=== PATIENT | female | born 1935 | race Caucasian/White ===

== ENCOUNTER 2018-11-15 20:25 | Emergency (ER) | payer OTHER, BC ==
[~2018-11-15] VITALS: Ht 165.1 cm; Wt 59.5 kg
[2018-11-15 20:32] VITALS: Ht 165.1 cm; Wt 59.5 kg
[2018-11-15 21:19] LABS: BASOPHIL % 0.5 % (0-2); PLATELET COUNT 241 x10^3mcL (130-400); RED CELL DISTRIBUTION WIDTH 15.1 % (11.5-14.5)
[2018-11-15 21:24] LABS: CALCIUM 8.9 mg/dL (8.5-10.1); CARBON DIOXIDE 29.7 mmol/L (21-32); CHLORIDE SERUM 99 mmol/L (98-107); GLUCOSE SERUM 112 mg/dL (74-106); POTASSIUM SERUM 4.1 mmol/L (3.5-5.1); SODIUM SERUM 133 mmol/L (136-145)
[2018-11-15 21:29] LABS: ALBUMIN 3.4 g/dL (3.4-5.0); ALKALINE PHOSPHATASE 81 U/L (46-116); ALT/SGPT 25 U/L (14-59); AST/SGOT 19 U/L (15-37); BILIRUBIN TOTAL 0.33 mg/dL (0.20-1.00); LIPASE 386 IU/L (73-393); TOTAL PROTEIN, SERUM 6.8 g/dL (6.4-8.2)
[2018-11-15 21:42] LABS: microscopic required? YES
[2018-11-15 21:43] LABS: urine erythrocyte NEGATIVE (NEGATIVE)
[2018-11-16 01:15] VITALS: BP 130/81
== END 2018-11-16 01:15 | disposition home or self-care (01) ==
LOC: ED 20:25
PROVIDERS: Emergency Medicine
DX: K57.90 Diverticulosis of intestine, part unspecified, without perforation or abscess without bleeding (principal); M54.16 Radiculopathy, lumbar region; E86.0 Dehydration; R61 Generalized hyperhidrosis; I10 Essential (primary) hypertension; E11.9 Type 2 diabetes mellitus without complications
CPT/HCPCS: J1885; Q9967

== ENCOUNTER 2018-11-21 12:44 | Emergency (ER) | payer OTHER, BC | END 2018-11-21 14:50 | disposition home or self-care (01) | LOC: ED 12:44 ==

== ENCOUNTER 2018-11-28 07:38 | Day surgery (SDC) | payer OTHER, BC ==
[~2018-11-28] VITALS: Ht 165.1 cm; Wt 59.0 kg
[2018-11-28 08:16] VITALS: BP 134/87
[2018-11-28 09:34] LABS: CALCIUM 9.2 mg/dL (8.5-10.1); CARBON DIOXIDE 24.8 mmol/L (21-32); CHLORIDE SERUM 105 mmol/L (98-107); CREATININE SERUM 0.9 mg/dL (0.6-1.0); GLUCOSE SERUM 107 mg/dL (74-106); POTASSIUM SERUM 4.3 mmol/L (3.5-5.1); SODIUM SERUM 140 mmol/L (136-145)
[2018-11-28 09:49] LABS: BASOPHIL % 0.4 % (0-2); PLATELET COUNT 279 x10^3mcL (130-400)
[2018-11-28 09:53] LABS: RED CELL DISTRIBUTION WIDTH 15.2 % (11.5-14.5)
[2018-11-28 12:43] VITALS: BP 124/69
== END 2018-11-28 12:35 | disposition home or self-care (01) ==
LOC: OR 07:38
PROVIDERS: Neuromusculoskeletal Medicine, Sports Medicine
PROC: 0PSJ34Z Reposition Left Radius with Internal Fixation Device, Percutaneous Approach (ICD-10-PCS; principal; 2018-11-28 10:00)
DX: S52.502A Unspecified fracture of the lower end of left radius, initial encounter for closed fracture (principal); E11.9 Type 2 diabetes mellitus without complications; Z79.82 Long term (current) use of aspirin; W19.XXXA Unspecified fall, initial encounter; Y92.9 Unspecified place or not applicable
CPT/HCPCS: 76001; C1713; J0690; J2175; J2250; J2405; J2704; J3010; J7030; Q0092

== ENCOUNTER 2019-02-22 11:34 | Emergency (ER) | payer OTHER, BC ==
[~2019-02-22] VITALS: Ht 165.1 cm; Wt 58.5 kg
[2019-02-22 11:43] VITALS: Ht 165.1 cm; Wt 58.5 kg
[2019-02-22 14:43] VITALS: BP 176/76
== END 2019-02-22 14:43 | disposition home or self-care (01) ==
LOC: ED 11:34
DX: M54.5 Low back pain (principal); I10 Essential (primary) hypertension; E11.9 Type 2 diabetes mellitus without complications; E78.00 Pure hypercholesterolemia, unspecified
CPT/HCPCS: J3010; J3490

== ENCOUNTER 2020-01-06 14:50 | Inpatient (IN) | payer OTHER ==
[~2020-01-06] VITALS: Ht 167.6 cm; Wt 59.4 kg
[2020-01-06 15:31] LABS: BASOPHIL % 0.4 % (0-2); PLATELET COUNT 203 x10^3mcL (130-400)
[2020-01-06 15:32] LABS: RED CELL DISTRIBUTION WIDTH 14.9 % (11.5-14.5)
[2020-01-06 15:59] LABS: CALCIUM 8.9 mg/dL (8.5-10.1); CARBON DIOXIDE 26.5 mmol/L (21-32); CHLORIDE SERUM 107 mmol/L (98-107); CREATININE SERUM 1.2 mg/dL (0.6-1.0); GLUCOSE SERUM 117 mg/dL (74-106); POTASSIUM SERUM 3.7 mmol/L (3.5-5.1); SODIUM SERUM 141 mmol/L (136-145)
[2020-01-06 16:10] LABS: ALKALINE PHOSPHATASE 94 U/L (46-116); ALT/SGPT 35 U/L (14-59); AST/SGOT 18 U/L (15-37); BILIRUBIN TOTAL 0.36 mg/dL (0.20-1.00); CHOLESTEROL 168 mg/dL (<200); HDL CHOLESTEROL 54 mg/dL (40-60); LIPASE 334 IU/L (73-393); MAGNESIUM 1.5 mg/dL (1.8-2.4); T4(THYROXINE) 6.7 ug/dL (4.7-13.3); TOTAL PROTEIN, SERUM 6.4 g/dL (6.4-8.2)
[2020-01-06 16:13] LABS: ALBUMIN 3.2 g/dL (3.4-5.0)
[2020-01-06 17:48] LABS: microscopic required? YES; urine erythrocyte NEGATIVE (NEGATIVE)
[2020-01-06 17:59] LABS: AMPHETAMINE QUAL UR NONE DETECTED (See below)
[2020-01-06] MEDS ORDERED: ATORVASTATIN CA40 M1 PO (18:07)
[2020-01-06] MEDS ORDERED: ZESTRIL40 MG PO (18:07)
[2020-01-06] MEDS ORDERED: METFORMIN HCL500 M4 PO (18:08)
[2020-01-06] MEDS ORDERED: PANTOPRAZOLE SO40 M1 PO (18:09)
[2020-01-06 20:43] VITALS: BP 169/59
[2020-01-06 20:58] VITALS: BP 155/57
[2020-01-07] MEDS ORDERED: ARICEPT10 MG PO (00:28)
[2020-01-07] MEDS ORDERED: PANTOPRAZOLE SO20 M1 PO (00:29)
[2020-01-07] MEDS ORDERED: ADULT LOW DOSE81 MG PO (00:30)
[2020-01-07 05:55] VITALS: BP 137/60
[2020-01-07 10:36] VITALS: BP 155/64
[2020-01-07 12:32] VITALS: Ht 167.6 cm; Wt 59.4 kg
[2020-01-07 13:33] VITALS: BP 133/63
[2020-01-07 19:23] VITALS: BP 147/82
[2020-01-07 23:01] VITALS: BP 136/84
[2020-01-08 05:35] VITALS: BP 131/57
[2020-01-08 07:14] VITALS: BP 124/61
[2020-01-08 08:55] LABS: BASOPHIL % 0.4 % (0-2); PLATELET COUNT 235 x10^3mcL (130-400)
[2020-01-08 09:24] LABS: RED CELL DISTRIBUTION WIDTH 14.8 % (11.5-14.5)
[2020-01-08 09:45] LABS: CALCIUM 9.3 mg/dL (8.5-10.1); CHLORIDE SERUM 106 mmol/L (98-107); CREATININE SERUM 0.9 mg/dL (0.6-1.0); GLUCOSE SERUM 109 mg/dL (74-106); MAGNESIUM 1.7 mg/dL (1.8-2.4); PHOSPHOROUS 4.1 mg/dL (2.5-4.9); POTASSIUM SERUM 3.8 mmol/L (3.5-5.1); SODIUM SERUM 139 mmol/L (136-145)
[2020-01-08 11:56] VITALS: BP 154/67
[2020-01-08] MEDS ORDERED: AUGMENTIN 875-1 EACH PO (13:24)
[2020-01-08 13:27] VITALS: BP 154/67
== END 2020-01-08 14:30 | disposition home or self-care (01) | DRG 124 ==
LOC: ED 14:50 → DU 16:47
PROVIDERS: Emergency Medicine; ADMIT Student in an Organized Health Care Education/Training Program; ATTEND Student in an Organized Health Care Education/Training Program
DX: S02.32XA Fracture of orbital floor, left side, initial encounter for closed fracture (principal); G93.41 Metabolic encephalopathy; N17.0 Acute kidney failure with tubular necrosis; N39.0 Urinary tract infection, site not specified; G90.8 Other disorders of autonomic nervous system; Y93.01 Activity, walking, marching and hiking; E11.65 Type 2 diabetes mellitus with hyperglycemia; F03.90 Unspecified dementia, unspecified severity, without behavioral disturbance, psychotic disturbance, mood disturbance, and anxiety; M17.11 Unilateral primary osteoarthritis, right knee; S09.90XA Unspecified injury of head, initial encounter; W18.39XA Other fall on same level, initial encounter; I10 Essential (primary) hypertension; E11.9 Type 2 diabetes mellitus without complications; K21.9 Gastro-esophageal reflux disease without esophagitis; E78.5 Hyperlipidemia, unspecified; J45.909 Unspecified asthma, uncomplicated; E78.00 Pure hypercholesterolemia, unspecified; Y92.410 Unspecified street and highway as the place of occurrence of the external cause; Z79.84 Long term (current) use of oral hypoglycemic drugs; Y99.8 Other external cause status; Z90.710 Acquired absence of both cervix and uterus; Z23 Encounter for immunization; Z79.899 Other long term (current) drug therapy
CPT/HCPCS: 82962; 83880; 90715; C9113; G0378; G0480; J0696; J1956; J2060; J7030; Q0092